=== PATIENT | male | born 1965 | race Asian ===

== ENCOUNTER 2021-01-19 10:45 | Inpatient (IN) ==
[~2021-01-19 10:45] MED LIST: Buffered Lidocaine 1% SYRIN 1 ml INTRADERM ONE; DiMENhydriNATE IV 50 mg/ml 1 ml VIAL IV PUSH ONE; HYDROmorphone 1 MG/1 ML SYRINGE IV PRN; Lactated Ringers 1000 ml BAG 1,000 ML IV SCH; Naloxone 0.4 mg VIAL 0.4 mg/ml 1 ml VIAL IV PRN; Ondansetron 4 mg VIAL 2 MG/ML 2 ml VIAL IV PRN; fentaNYL 100 mcg/2 ml 50 MCG/ML VIAL IV PRN
[2021-01-19] MEDS ORDERED: fentaNYL 250 mcg/5 ml 50 MCG/ML 5 ml VIAL (250 MCG) ONE (12:32)
[2021-01-19] MEDS ORDERED: Midazolam 2 mg/2 ml VIAL 1 mg/ml 2 ml VIAL (2 mg) ONE (12:32)
[2021-01-19] MEDS ORDERED: Lidocaine 2% PF 5 ML VIAL ONE (12:33)
[2021-01-19] MEDS ORDERED: Propofol 10 MG/ML 20 ML BTL ONE (12:33)
[2021-01-19] MEDS ORDERED: Heparin 5000 UNITS/ML 1 mL VIAL ONE (13:03)
[2021-01-19] MEDS ORDERED: Ertapenem 1 GM in NS 0.9% 50 ML IVPB ONE (13:15)
[2021-01-19] MEDS ORDERED: Rocuronium 50 mg VIAL 10 mg/ml 5 ml VIAL (50 mg) ONE (13:29)
[2021-01-19] MEDS ORDERED: Bupivacaine 0.25% EPI 200,000 30 ML SDV ONE (13:50)
[2021-01-19] MEDS ORDERED: HYDROmorphone 1 MG/1 ML SYRINGE ONE (14:25)
[2021-01-19] MEDS ORDERED: Dexamethasone IV 4 MG/ML VIAL 1 ml VIAL ONE (14:38)
[2021-01-19] MEDS ORDERED: Sevoflurane BOTTLE ONE (14:58)
[2021-01-19] MEDS ORDERED: Ondansetron 4 mg VIAL 2 MG/ML 2 ml VIAL ONE (17:02)
[2021-01-19] MEDS ORDERED: Ondansetron 4 mg VIAL 2 MG/ML 2 ml VIAL IV PRN (17:25)
[2021-01-19] MEDS ORDERED: Albuterol/Ipratropium NEB.SOL (2.5/0.5 MG) 3 ML NEB.SOLN INH PRN (17:29)
[2021-01-19] MEDS ORDERED: HYDROmorphone 0.5 MG/0.5 ML SYRINGE IV SLOW PU PRN (18:35)
[2021-01-19] MEDS: Lactated Ringers 1000 ml BAG 1,000 ML IV SCH (19:40)
[2021-01-20] MEDS: Lactated Ringers 1000 ml BAG 1,000 ML IV SCH ×2 (05:15→15:10)
[2021-01-20 06:11] LABS: ABS Lymphocytes 1.2 10^3/ul (1.0-4.8); ABS Monocytes 0.8 10^3/ul (0-0.8); ABS Neutrophils 9.3 10^3/ul (1.5-7.7); Hematocrit 37 % (42-52); Hemoglobin 13.2 g/dL (14.0-18.0); Lymphocyte % 10.6 %; Mean Corpuscular HGB Conc 35 g/dL (31-36); Mean Corpuscular Hemoglobin 33 pg (27-31); Mean Corpuscular Volume 93 fL (80-94); Mean Platelet Volume 9.4 fL (7.4-10.4); Platelet Count 192 10^3/uL (150-450); Red Blood Count 4.01 10^6 /uL (4.18-5.48); Red Cell Distribution Width 13 % (10-15); White Blood Count 11.4 10^3/uL (3.5-10.8)
[2021-01-20 06:31] LABS: Calcium 8.7 mg/dL (8.6-10.3); EGFR African American 83.8 (>60); EGFR Non-African American 69.3 (>60)
[2021-01-20] MEDS ORDERED: Lactated Ringers 1000 ml BAG 1,000 ML IV SCH (20:50)
[2021-01-21 07:34] VITALS: BP 116/62
== END 2021-01-21 10:33 | disposition home or self-care (01) | DRG 221 ==
LOC: AA 12:13 → SSU 18:28
PROVIDERS: ADMIT Surgery; ATTEND Surgery